=== PATIENT | female | born 1950 | race Caucasian/White ===

== ENCOUNTER 2016-12-01 11:34 | Emergency (ER) | payer OTHER, MEDICARE ==
[~2016-12-01] VITALS: Ht 163.8 cm; Wt 106.6 kg
[~2016-12-01 11:34] MED LIST: METFORMIN HYDR500 MG PO; PROAIR HFA0.09 MG/Ac INH; VICODIN5-300 PO; ZITHROMAX Z-PA250 M1 PO
--- NOTE | 2016-12-01 14:46 | ED GENERAL ADULT ---
History of Present Illness General Chief Complaint: General Adult Stated Complaint: PT HAS PAIN UNDER LEFT BREAST AND BACK Source: patient, old records Exam Limitations: no limitations Vital Signs & Intake/Output Vital Signs & Intake/Output Vital Signs Date Time Temp Pulse Resp B/P Pulse O2 O2 Flow FiO2 Ox Delivery Rate 12/01 1451 61 18 143/69 97 Room Air 12/01 1208 98.6 62 20 155/76 96 Room Air Allergies Coded Allergies: aspirin (Mild, MILD GI UPSET 12/01/16) Reconcile Medications Albuterol Sulfate (Proair Hfa) 90 MCG HFA.AER.AD 2 PUF INH PRN RESPIRATORY ( Reported) Chlorthalidone 25 MG TABLET 1 TAB PO DAILY BP (Reported) Fenofibrate Nanocrystallized (Fenofibrate) 48 MG TABLET 1 TAB PO DAILY TRIGLYCERIDES/CHOLESTEROL (Reported) Fluticasone Propionate 50 MCG/ACTUATION SPRAY.SUSP 1-2 SPRAY NASB AD PRN NASAL CONGESTION (Reported) Hydrocodone/Acetaminophen (Vicodin 5-300 MG Tablet) 5 MG-300 MG TABLET 1 TAB PO Q6 PRN pain Ibuprofen 800 MG TABLET 1 TAB PO TID PRN PAIN (Reported) Levothyroxine Sodium 88 MCG TABLET 1 TAB PO DAILY THYROID (Reported) Metformin HCl 500 MG TABLET 1 TAB PO DAILY DM (Reported) Pantoprazole Sodium 40 MG TABLET.DR 1 TAB PO BID GI (Reported) Pravastatin Sodium 20 MG TABLET 1 TAB PO DAILY CHOLESTEROL (Reported) Tizanidine HCl 2 MG TABLET 1 TAB PO TID MUSCLE SPASMS (Reported) Triage Note: TRIAGE: PT TO ER C/C MID BACK, MID STOMACH AND L BREAST PAIN SINCE YESTERDAY. ONSET YESTERDAY, CONSTANT SINCE ONSET. -N/V/D, LNBM THIS MORNING. -URINARY S/S. Triage Nurses Notes Reviewed? yes HPI: Patient is a 66-year-old female presents complaining of pain underneath her left breast, abdominal pain, back pain. Pain began yesterday. Patient reports she felt a lump develop underneath her left breast along with pain that worsens with palpation to the area. Also reports diffuse abdominal pain and back pain onset yesterday. Patient does not feel that the pain underneath her left breast connects to her abdominal pain or back pain. Walking also worsens her pain. Pain is moderate to severe, patient has not taken any medication for her symptoms. Last bowel movement was this morning and normal. Patient denies fevers, chills, nausea, vomiting, urinary symptoms Past History Travel History Traveled to [place] past 21 day No Medical History Any Pertinent Medical History? see below for history Neurological: NONE EENT: NONE Cardiovascular: hypertension Respiratory: obstructive sleep apnea, USES CPAP Gastrointestinal: NONE Hepatic: NONE Renal: NONE Musculoskeletal: OSTEOPOROSIS Psychiatric: NONE Endocrine: hypothyroidism Blood Disorders: NONE Cancer(s): NONE MOUNTAIN GUIDE/Reproductive: NONE Influenza Vaccine: 07/02/11 Surgical History Surgical History: tubal ligation Psychosocial History What is your primary language Latvian Tobacco Use: Quit >30 days ago ETOH Use: denies use Illicit Drug Use: denies illicit drug use Family History Hx Contributory? No Review of Systems Review of Systems Constitutional: Denies: chills, fever. EENTM: Reports: no symptoms. Respiratory: Denies: cough, short of breath. Cardiovascular: Denies: chest pain. GI: Reports: see HPI. Genitourinary: Reports: no symptoms. Musculoskeletal: Reports: see HPI, back pain. Skin: Reports: lumps (UNDER LEFT BREAST). Neurological/Psychological: Reports: no symptoms. Hematologic/Endocrine: Reports: no symptoms. Immunologic/Allergic: Reports: no symptoms. Physical Exam Physical Exam General Appearance: well developed/nourished, alert, awake, obese Head: atraumatic, normal appearance Eyes: Bilateral: normal appearance, PERRL, EOMI. Ears, Nose, Throat: normal pharynx, normal ENT inspection, hearing grossly normal Neck: normal inspection, supple, full range of motion Respiratory: normal breath sounds, no respiratory distress Cardiovascular: regular rate/rhythm Gastrointestinal: normal bowel sounds, soft, mild diffuse abdominal tenderness Back: left lumbar paraspinal tenderness Extremities: normal inspection, normal capillary refill, normal range of motion Neurologic/Psych: no motor/sensory deficits, awake, alert, oriented x 3, normal gait, normal mood/affect Skin: intact, normal color, warm/dry Lymphatic: no anterior cervical keith Core Measures ACS in differential dx? No CVA/TIA Diagnosis: No Severe Sepsis Present: No Septic Shock Present: No Progress Differential Diagnoses I considered the following diagnoses in my evaluation of the patient: intra- abdominal infection, AAA, aortic dissection, hernia, herniated disc, arthritis back, lumbar strain, uti, shingles Plan of Care: Orders Procedure Date/time Status Add-on Test (ER Only) 12/01 1508 Active TROPONIN LEVEL 12/01 1446 Complete URINALYSIS 12/01 144 Complete LIPASE 12/01 1440 Complete LACTIC ACID 12/01 144 Complete COMPREHENSIVE METABOLIC PANEL 12/01 144 Complete CBC WITHOUT DIFFERENTIAL 12/01 144 Complete AMYLASE 12/01 144 Complete EKG 12/01 1152 Active Laboratory Tests 12/01/16 1447: Urine Color YEL, Urine Clarity CLEAR, Urine pH 6.0, Ur Specific [place] 1.015, Urine Protein NEG, Urine Ketones NEG, Urine Nitrite NEG, Urine Bilirubin NEG, Urine Urobilinogen 0.2, Ur Leukocyte Esterase NEG, Ur Microscopic EXAM NOT REQUIRED, Urine Hemoglobin NEG, Urine Glucose NEG 12/01/16 1446: Anion Gap 13, Estimated GFR 56 L, BUN/Creatinine Ratio 15.0, Glucose 112 H, Lactic Acid 1.4, Calcium 10.2, Total Bilirubin 0.5, AST 35, ALT 69 H, Alkaline Phosphatase 89, Troponin I < 0.01, Total Protein 7.8, Albumin 4.3, Globulin 3.5, Albumin/Globulin Ratio 1.2, Amylase 62, Lipase 151, CBC w Diff NO MAN DIFF REQ, RBC 4.66, MCV 83.0, MCH 27.5, RDW 15.0 H, MPV 9.1, Gran % 55.3, Lymphocytes % 30.8, Monocytes % 10.2 H, Eosinophils % 2.8, Basophils % 0.9, Absolute Granulocytes 4.5, Absolute Lymphocytes 2.5, Absolute Monocytes 0.8 H, Absolute Eosinophils 0.2, Absolute Basophils 0.1, PUBS MCHC 33.1 12/01/2016 5:07:43 PM: Results of labs and imaging discussed with patient. Patient reports pain is improved. Patient resting comfortably, nontoxic- appearing. Appears stable for discharge and close outpatient follow-up. (LAM SANCHEZ,KOFFI) Diagnostic Imaging: Viewed by Me: CT Scan. Discussed w/RAD: CT Scan. Radiology Impression: PATIENT: BEN SARMIENTO PRESENT AGE: 66 PATIENT ACCOUNT NO: [id number] : 52 LOCATION: [facility] ORDERING PHYSICIAN: KOFFI SANCHEZ SERVICE DATE: 12/01/16 EXAM TYPE: CAT - CT ABD & PELVIS W IV CONTRAST EXAMINATION: CT ABDOMEN AND PELVIS WITH CONTRAST CLINICAL INFORMATION: Abdominal pain radiating into the back. COMPARISON: No relevant prior imaging available. TECHNIQUE: Multidetector volumetric imaging was performed of the abdomen and pelvis before and after the IV administration of 94 mL of Optiray 320 intravenous contrast. Sagittal and coronal reformatted images were obtained on the technologist's workstation. DLP: 1245.9 mGy-cm FINDINGS: LUNG BASES: There is bibasilar subsegmental atelectasis. No pleural or pericardial effusion. The heart is enlarged. LIVER, GALLBLADDER, AND BILIARY TREE: The liver is normal in size, shape, and attenuation. No focal hepatic lesion or biliary ductal dilatation is present. The gallbladder is unremarkable with no evidence of radiopaque gallstones, gallbladder wall thickening, or obvious pericholecystic inflammatory changes. PANCREAS: Unremarkable. SPLEEN: Unremarkable. ADRENAL GLANDS: Unremarkable. KIDNEYS AND URETERS: The kidneys demonstrate symmetric nephrographic enhancement. There is a well marginated benign-appearing cystic lesion at the upper pole of the right kidney that measures 1.8 cm in maximal transaxial dimension. There is no hydroureteronephrosis. No worrisome mass or calcification is visualized along the expected course of the right or left ureters. BLADDER: Unremarkable. GASTROINTESTINAL TRACT: There is a small hiatal hernia. Air and fluid is visualized within the distal esophagus. The stomach is unremarkable. Small bowel is normal. The colon and appendix are normal with the exception of a few diverticula within the descending colon. No evidence of acute diverticulitis. There is no free intraperitoneal air or fluid. No abnormal perirectal or presacral inflammation. ABDOMINAL WALL: There is a small fat-containing umbilical hernia. The abdominal wall is otherwise intact. LYMPH NODES: There are no pathologically enlarged mesenteric or retroperitoneal lymph nodes. VASCULAR: The abdominal aorta and inferior vena cava are unremarkable. PELVIC VISCERA: There is an anteverted uterus. No worrisome adnexal mass. OSSEOUS STRUCTURES: There are no worrisome lytic or blastic osseous lesions. There is transitional lumbosacral anatomy with partial lumbarization of the S1 segment. There is advanced degenerative spondylosis at the thoracolumbar junction. No evidence of acute fracture. IMPRESSION: There is no abnormal finding to provide an explanation for the patient's abdominal pain. A few diverticula are visualized within the descending colon. No evidence of acute diverticulitis. No free intraperitoneal air or fluid. The heart is grossly enlarged. DICTATED BY: MANISH DORSEY MD DATE/TIME DICTATED:12/01/161629 OUTSIDE INSTALLATION MACHINIST: YA DATE/TIME TRANSCRIBED:12/01/161629 CONFIDENTIAL, DO NOT COPY WITHOUT APPROPRIATE AUTHORIZATION. <Electronically signed in Other Vendor System> SIGNED BY: MANISH DORSEY MD 12/01/16 1640 Initial ED EKG: normal axis, normal p-waves, normal sinus rhythm, LVH, no ST T wave changes Prior EKG: unchanged Departure Departure Time of Disposition: 1707 Disposition: HOME OR SELF CARE Condition: Stable Clinical Impression Primary Impression: Abdominal pain Qualifiers: Abdominal location: generalized Qualified Code: R10.84 - Generalized abdominal pain Secondary Impressions: Low back pain Qualifiers: Chronicity: acute Back pain laterality: bilateral Sciatica presence : without sciatica Qualified Code: M54.5 - Low back pain Referrals: [facility] FONG (PCP/Family) Additional Instructions: Follow-up with her primary doctor within 1 week for further evaluation. Call in the morning for appointment. Do not take her metformin for the next 2 days. Call your doctor for further dosing instructions. Return to the emergency department if unable to stay hydrated, fevers, or worsening of symptoms. Departure Forms: Customer Survey General Discharge Information Prescriptions: Current Visit Scripts Hydrocodone/Acetaminophen (Vicodin 5-300 MG Tablet) 1 TAB PO Q6 PRN pain #10 TAB Critical Care Note Critical Care Note Critical Care Time: non-applicable
[2016-12-01 14:58] LABS: ABSOLUTE BASOPHIL COUNT 0.1 /CUMM (0.0-0.2); ABSOLUTE EOSINOPHIL COUNT 0.2 /CUMM (0.0-0.7); ABSOLUTE GRANULOCYTE CT 4.5 /CUMM (1.4-6.5); ABSOLUTE LYMPH COUNT 2.5 /CUMM (1.2-3.4); ABSOLUTE MONOCYTE COUNT 0.8 /CUMM (0.10-0.60); BASOPHIL % 0.9 % (0.0-2.0); EOSINOPHIL % 2.8 % (0-5); GRANULOCYTE % 55.3 % (42.2-75.2); HEMATOCRIT 38.6 % (37-47); MEAN CORPUSCULAR HGB 27.5 PG (27.0-31.0); MEAN CORPUSCULAR HGB CONC 33.1 G/DL (33.0-37.0); MEAN PLATELET VOLUME 9.1 FL (7.4-10.4); PLATELET COUNT 227 /CUMM (130-400); RED BLOOD CELL CT 4.66 /CUMM (4.20-5.40); WHITE BLOOD CELL COUNT 8.2 /CUMM (4.8-10.8)
[2016-12-01] MEDS ORDERED: FENOFIBRATE48 M1 PO (15:44)
[2016-12-01] MEDS ORDERED: PANTOPRAZOLE SO40 M1 PO (15:45)
[2016-12-01] MEDS ORDERED: PRAVASTATIN SOD20 M2 PO (15:45)
[2016-12-01] MEDS ORDERED: PROAIR HFA8.5 GM INH (15:45)
[2016-12-01] MEDS ORDERED: METHOCARBAMOL500 M1 PO (15:46)
[2016-12-01] MEDS ORDERED: IBUPROFEN800 M1 PO (15:46)
[2016-12-01] MEDS ORDERED: LEVOTHYROXINE88 MCG PO (15:46)
[2016-12-01] MEDS ORDERED: TIZANIDINE HCL2 M1 PO (15:47)
[2016-12-01] MEDS ORDERED: FLUTICASONE PRO16 GM NASB (15:47)
[2016-12-01] MEDS ORDERED: METFORMIN HCL500 M3 PO (15:47)
[2016-12-01] MEDS ORDERED: CHLORTHALIDONE25 M1 PO (15:47)
--- NOTE | 2016-12-01 16:40 | CT SCAN REPORT ---
EXAMINATION: CT ABDOMEN AND PELVIS WITH CONTRAST CLINICAL INFORMATION: Abdominal pain radiating into the back. COMPARISON: No relevant prior imaging available. TECHNIQUE: Multidetector volumetric imaging was performed of the abdomen and pelvis before and after the IV administration of 94 mL of Optiray 320 intravenous contrast. Sagittal and coronal reformatted images were obtained on the technologist's workstation. DLP: 1245.9 mGy-cm FINDINGS: LUNG BASES: There is bibasilar subsegmental atelectasis. No pleural or pericardial effusion. The heart is enlarged. LIVER, GALLBLADDER, AND BILIARY TREE: The liver is normal in size, shape, and attenuation. No focal hepatic lesion or biliary ductal dilatation is present. The gallbladder is unremarkable with no evidence of radiopaque gallstones, gallbladder wall thickening, or obvious pericholecystic inflammatory changes. PANCREAS: Unremarkable. SPLEEN: Unremarkable. ADRENAL GLANDS: Unremarkable. KIDNEYS AND URETERS: The kidneys demonstrate symmetric nephrographic enhancement. There is a well marginated benign-appearing cystic lesion at the upper pole of the right kidney that measures 1.8 cm in maximal transaxial dimension. There is no hydroureteronephrosis. No worrisome mass or calcification is visualized along the expected course of the right or left ureters. BLADDER: Unremarkable. GASTROINTESTINAL TRACT: There is a small hiatal hernia. Air and fluid is visualized within the distal esophagus. The stomach is unremarkable. Small bowel is normal. The colon and appendix are normal with the exception of a few diverticula within the descending colon. No evidence of acute diverticulitis. There is no free intraperitoneal air or fluid. No abnormal perirectal or presacral inflammation. ABDOMINAL WALL: There is a small fat-containing umbilical hernia. The abdominal wall is otherwise intact. LYMPH NODES: There are no pathologically enlarged mesenteric or retroperitoneal lymph nodes. VASCULAR: The abdominal aorta and inferior vena cava are unremarkable. PELVIC VISCERA: There is an anteverted uterus. No worrisome adnexal mass. OSSEOUS STRUCTURES: There are no worrisome lytic or blastic osseous lesions. There is transitional lumbosacral anatomy with partial lumbarization of the S1 segment. There is advanced degenerative spondylosis at the thoracolumbar junction. No evidence of acute fracture. IMPRESSION: There is no abnormal finding to provide an explanation for the patient's abdominal pain. A few diverticula are visualized within the descending colon. No evidence of acute diverticulitis. No free intraperitoneal air or fluid. The heart is grossly enlarged.
[2016-12-01] MEDS ORDERED: VICODIN 5-3001 EACH PO (17:10)
[2016-12-01 17:12] VITALS: BP 143/65
== END 2016-12-01 17:39 ==
LOC: ERH 11:34
PROVIDERS: Physician Assistant
DX: R10.9 Unspecified abdominal pain (principal); M54.5 Low back pain
CPT/HCPCS: 74177; 81003; 93005; 93010; 96374